=== PATIENT | male | born 1980 | race Caucasian/White ===

== ENCOUNTER 2022-02-07 19:22 | Emergency (ER) | payer SELFPAY ==
--- NOTE | 2022-02-07 21:24 | ER ---
Nurse's Notes [facility] Name: Felipe Gibson Age: 41 yrs Sex: Male : 1980 Arrival Date: 02/07/2022 Time: 19:24 Bed Waiting Private MD: Diagnosis: Presentation: 02/07 20:20 Chief complaint: Patient states: he started vomiting with abdominal pain since around bb 0300. Coronavirus screen: At this time, the client does not indicate any symptoms associated with coronavirus-19. Ebola Screen: No symptoms or risks identified at this time. Initial Sepsis Screen: Does the patient meet any 2 criteria? No. Patient's initial sepsis screen is negative. Does the patient have a suspected source of infection? No. Patient's initial sepsis screen is negative. Risk Assessment: Do you want to hurt yourself or someone else? Patient reports no desire to harm self or others. Onset of symptoms was February 07, 2022. 20:20 Method Of Arrival: Ambulatory bb 20:20 Acuity: MINE 3 bb Triage Assessment: 20:21 General: Appears in no apparent distress. slender, Behavior is calm, cooperative. Pain: bb Complains of pain in abdomen Pain currently is 2 out of 10 on a pain scale. Neuro: Level of Consciousness is awake, alert, obeys commands, Oriented to person, place, time, situation. Cardiovascular: No deficits noted. Respiratory: Respiratory effort is even, unlabored. GI: Abdomen is non-distended, Reports lower abdominal pain, vomiting. Derm: Skin is pink, warm \T\ dry. Musculoskeletal: Circulation, motion, and sensation intact. Historical: - Allergies: 20:21 No Known Allergies; bb - PMHx: 20:21 None; bb - PSHx: 20:21 None; bb - Immunization history:: Client reports having NOT received the Covid vaccine. - Social history:: Smoking status: Patient reports the use of cigarette tobacco products, Patient uses Patient/guardian denies using alcohol. Vital Signs: 20:20 BP 142 / 91; Pulse 79; Resp 16 S; Temp 98.1(O); Pulse Ox 99% on R/A; Weight 63.5 kg bb (R); Height 5 ft. 10 in. (177.80 cm) (R); Pain 2/10; 20:20 Body Mass Index 20.09 (63.50 kg, 177.80 cm) bb ED Course: 19:24 Patient arrived in ED. [email or web address] 20:21 Triage completed. bb 20:21 Arm band placed on Patient placed in waiting room, Patient notified of wait time. bb 20:31 Srinath Henry PA is PHCP. cp 20:31 Gerald Mills MD is Attending Physician. cp 21:01 Attending Physician role handed off by Gerald Mills MD [facility] 21: Srinath Yeh MD is Attending Physician. [facility] 21:23 Patient's name was called from ER lobby. No response. Unable to locate patient. Will bb disposition as left without being seen by a provider. Administered Medications: No medications were administered Outcome: 21:23 Patient left the ED. bb Signatures: Srinath Yeh MD MD cha Ballard, Brenda, RN RN bb Srinath Henry PA PA Raina Braswell [email or web address] Corrections: (The following items were deleted from the chart) 20:23 20:20 BP 163 / 93; Pulse 79bpm; Resp 16bpm; Spontaneous; Pulse Ox 99% RA; Temp 98.1F bb Oral; 63.5 kg Reported; Height 5 ft. 10 in. Reported; BMI: 20.0; Pain 2/10; bb
[2022-02-07 22:23] VITALS: BP 142/91; TEMP 98.1; O2SAT 99
== END 2022-02-07 21:23 | disposition left against medical advice (07) ==
LOC: ER 19:22
DX: Z02.89 Encounter for other administrative examinations (principal)
CPT/HCPCS: 99281